=== PATIENT | female | born 1990 | race Caucasian/White ===

== ENCOUNTER 2019-11-15 16:17 | Emergency (ER) | payer MEDICAID ==
[~2019-11-15] VITALS: Ht 162.6 cm; Wt 86.0 kg
[~2019-11-15 16:17] MED LIST: PREN-88 PO
[2019-11-15 16:28] VITALS: BP 132/86
[2019-11-15 19:06] LABS: BASOPHILS % 0.4 % (0.0-2.0); CHLORIDE 104 mEq/L (98-107); EOSINOPHILS % 0.8 % (0.0-5.0); HEMOGLOBIN. 14.2 g/dL (12.0-16.0); LYMPHOCYTES % 23.2 % (20.0-50.0); MEAN CORPUSCULAR HEMOGLOBIN 25.6 pg (28.0-32.0); MEAN CORPUSCULAR VOLUME 77.6 fL (81.0-99.0); MEAN PLATELET VOLUME 9.9 fl (7.4-10.4); MONOCYTES % 8.7 % (2.0-8.0); NEUTROPHILS % 66.9 % (40.0-76.0); PLATELET 247 x1000/uL (130-400); RED BLOOD CELL COUNT 5.55 mill/uL (4.2-5.4); RED CELL DISTRIBUTION WIDTH 18.2 % (11.6-14.6)
[2019-11-15] MEDS ORDERED: KETOROLAC 60MG/2ML VIAL IM ONE (20:30)
== END 2019-11-15 20:57 | disposition home or self-care (01) ==
LOC: ER 16:17
DX: N93.9 Abnormal uterine and vaginal bleeding, unspecified (principal)
CPT/HCPCS: 36415; 76830; 76856; 80053; 81025; 85025; 86850; 86900; 86901; 99284; J1885

== ENCOUNTER 2022-12-26 17:43 | Emergency (ER) | payer MEDICAID ==
[~2022-12-26] VITALS: Ht 157.5 cm; Wt 95.0 kg
[2022-12-26] MEDS ORDERED: IBUPROFEN 400MG TABLET PO ONE (22:00)
[2022-12-26 22:40] VITALS: BP 141/95
== END 2022-12-27 00:50 | disposition home or self-care (01) ==
LOC: ER 17:43
DX: M79.675 Pain in left toe(s) (principal)
CPT/HCPCS: 73660; 81025; 99283